=== PATIENT | male | born 1960 | race Caucasian/White ===

== ENCOUNTER 2018-05-21 15:36 | Emergency (ER) | payer OTHER ==
[2018-05-21 15:37] VITALS: BMI 28.8
--- NOTE | 2018-05-21 20:29 | C.PDOC ---
History Of Present Illness Patient is a 58 year old male who presents to the ED for evaluation after a fall with possible LOC that happened on May while patient was at work in [email or web address]. Patient states that he tripped and fell hitting the back of his head and was seen in an ED in [facility] where they put jon on a laceration to the back of his head, but did no further imaging. Patient reports that since then he has had a headache and dizziness, but has been able to ambulate. He denies ant vision change, numbness, weakness, or further syncopal episodes. Time Seen by Provider: 05/21/18 18:54 Chief Complaint (Nursing): Headache History Per: Patient History/Exam Limitations: no limitations Onset/Duration Of Symptoms: Days Current Symptoms Are (Timing): Still Present Associated Symptoms: denies: Photophobia, Blurred Vision, Nausea Recent travel outside of the [place]: No Additional History Per: Patient Past Medical History Reviewed: Historical Data, Nursing Documentation, Vital Signs Vital Signs: Last Vital Signs Temp 97.7 F 05/21/18 19:10 Pulse 54 L 05/21/18 19:10 Resp 18 05/21/18 19:10 BP 118/78 05/21/18 19:10 Pulse Ox 98 05/21/18 19:10 - Medical History PMH: HTN Denies: Chronic Kidney Disease Surgical History: No Surg Hx - [facility] Procedures EXCISE CONJUNCTIV LESION (05/27/14) Family History: States: No Known Family Hx - Social History Hx Alcohol Use: No Hx Substance Use: No - Immunization History Hx Tetanus Toxoid Vaccination: No Hx Influenza Vaccination: No Hx Pneumococcal Vaccination: No Review Of Systems Eyes: Negative for: Vision Change Cardiovascular: Negative for: Chest Pain Respiratory: Negative for: Shortness of Breath Skin: Positive for: Other (laceration to back of head) Neurological: Positive for: Headache, Dizziness, Other (possible LOC after fall). Negative for: Weakness, Numbness Physical Exam - Physical Exam Appears: Non-toxic, No Acute Distress Skin: Normal Color, Warm, Dry Head: Normacephalic, Laceration (occipital region 4 cm laceration with jon, clean, dry, intact) Oral Mucosa: Moist Neck: Normal ROM, Supple Chest: Symmetrical, No Deformity Cardiovascular: Rhythm Regular, No Murmur Respiratory: Normal Breath Sounds, No Rales, No Rhonchi, No Wheezing Gastrointestinal/Abdominal: Soft, No Tenderness Back: Vertebral Tenderness (paravertebral tenderness in cervical spine region) Neurological/Psych: Oriented x3, Normal Speech, Normal Cognition, Normal Cranial Nerves, Normal Motor, Normal Sensation ED Course And Treatment O2 Sat by Pulse Oximetry: 98 (on RA) Pulse Ox Interpretation: Normal - Other Rad CT Cervical Spine X-Ray: Viewed By Me, Read By Radiologist Interpretation: IMPRESSION: 1. No acute cervical spine abnormality. 2. Mild degenerative disc disease and bilateral uncovertebral facet arthropathy at C5-6. 3. 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 . Electronically signed on May 21, 2018 9:31:53 PM EDT by: Raphael Durán M.D., ALANA Certified By ABR & CBCCT. Fellowship Trained MRI and CT Specialist. - CT Scan/US CT Head Other Rad Studies (CT/US): Read By Radiologist, Radiology Report Reviewed CT/US Interpretation: IMPRESSION: 1. No acute intracranial abnormality. 2. Non-depressed obliquely oriented linear right parietal skull fracture. 3. Surgical jon are seen in the scalp of the right parietal region. . Electronically signed on May 21, 2018 9:24:31 PM EDT by: Raphael Durán M.D., ALANA Certified By ABR & CBCCT. Fellowship Trained MRI and CT Specialist Medical Decision Making Medical Decision Making: Plan: CT Cervical Spine CT Head CT head and cspine done which were both unremarkable. Results discussed with patient. Concussion instructions provided. Disposition - Disposition Disposition: HOME/ ROUTINE Disposition Time: 22:00 Condition: STABLE Additional Instructions: SALENA SULTANA, thank you for letting us take care of you today. Your provider was Lori Hayden MD and you were treated for FALL/HEAD PAIN. The emergency medical care you received today was directed at your acute symptoms. If you were prescribed any medication, please fill it and take as directed. It may take several days for your symptoms to resolve. Return to the Emergency Department if your symptoms worsen, do not improve, or if you have any other problems. Please contact your doctor or call one of the physicians/clinics you have been referred to that are listed on the Patient Visit Information form that is included in your discharge packet. Bring any paperwork you were given at discharge with you along with any medications you are taking to your follow up visit. Our treatment cannot replace ongoing medical care by a primary care provider outside of the emergency department. Thank you for allowing the [facility] team to be part of your care today. If you had an X-Ray or CT scan: A Radiologist will review the ED reading if any change in treatment is needed we will contact you. If you had a blood, urine, or wound culture: It will take several days for the results, if any change in treatment is needed we will contact you. If you had an STI test: It will take 48 hours for the results. Please call after 1 week if you have not heard back. Instructions: Concussion, Adult (DC) Forms: [employer] (Romansh), Work Excuse - Clinical Impression Clinical Impression: Headache, Concussion - Scribe Statement The provider has reviewed the documentation as recorded by the Destiney Newby All medical record entries made by the Joshuaibe were at my direction and personally dictated by me. I have reviewed the chart and agree that the record accurately reflects my personal performance of the history, physical exam, medical decision making, and the department course for this patient. I have also personally directed, reviewed, and agree with the discharge instructions and disposition.
[2018-05-21 22:11] VITALS: BP 115/75; PULSE 92; RESP 16; TEMP 97.9
[2018-05-22 01:57] VITALS: O2SAT 98
--- NOTE | 2018-05-22 09:04 | CT ---
Date of service: 05/21/2018 PROCEDURE: CT Cervical Spine without contrast HISTORY: neck injury COMPARISON: None available. TECHNIQUE: Axial computed tomography images were obtained of the cervical spine without the use of intravenous contrast. Coronal and sagittal reformatted images were created and reviewed. Radiation dose: Total exam DLP = 447.67 mGy-cm. This CT exam was performed using one or more of the following dose reduction techniques: Automated exposure control, adjustment of the mA and/or kV according to patient size, and/or use of iterative reconstruction technique. FINDINGS: VERTEBRAE: No fracture. Normal alignment. No destructive bony lesion. Straightening of the normal lordotic curvature is noted, consistent with possible muscular spasm. DISCS/SPINAL CANAL/NEURAL FORAMINA: Narrowing of the C5-6 intervertebral disc space associated with osteophytes anteriorly and posteriorly, consistent with degenerative disc disease. The remaining disc spaces are maintained in height. PARASPINAL SOFT TISSUES: Unremarkable. OTHER FINDINGS: None. IMPRESSION: Degenerative disc disease at C5-6. Possible muscular spasm. No evidence of fracture or dislocation. The preliminary findings for this examination were reported by [facility] at 9:31 p.m. on 05/21/2018. There is concurrence of this report with the preliminary findings.
--- NOTE | 2018-05-22 09:17 | CT ---
Date of service: 05/21/2018 PROCEDURE: CT HEAD WITHOUT CONTRAST. HISTORY: headache s/p head injury COMPARISON: None available. TECHNIQUE: Axial computed tomography images were obtained through the head/brain without intravenous contrast. Radiation dose: Total exam DLP = 1049.75 mGy-cm. This CT exam was performed using one or more of the following dose reduction techniques: Automated exposure control, adjustment of the mA and/or kV according to patient size, and/or use of iterative reconstruction technique. FINDINGS: HEMORRHAGE: No intracranial hemorrhage. BRAIN: No mass effect or edema. No atrophy or chronic microvascular ischemic changes. VENTRICLES: Unremarkable. No hydrocephalus. CALVARIUM: Nondisplaced right frontal convexity calvarial fracture. PARANASAL SINUSES: Unremarkable as visualized. No significant inflammatory changes. MASTOID AIR CELLS: Unremarkable as visualized. No inflammatory changes. OTHER FINDINGS: None. IMPRESSION: Nondepressed right frontal convexity calvarial fracture. No intracranial hemorrhage. The preliminary findings for this examination were reported by [facility] at 9:24 p.m. on 05/21/2018. There is concurrence of this report with the preliminary findings.
== END 2018-05-21 22:11 | disposition home or self-care (01) ==
LOC: C.ER 15:36
DX: S06.0X0A Concussion without loss of consciousness, initial encounter (principal); W01.0XXA Fall on same level from slipping, tripping and stumbling without subsequent striking against object, initial encounter; R51 Headache